=== PATIENT | male | born 1990 | race Caucasian/White ===

== ENCOUNTER 2017-12-31 11:55 | Emergency (ER) | payer SELFPAY ==
--- NOTE | 2017-12-31 12:23 | EKG ---
Test Date: 2017-12-31 Test Time: 12:11:16 Feed Manager: SHELLI MEASUREMENT RESULTS: Intervals: Rate: 78 OK: 136 QRSD: 82 QT: 364 QTc: 414 [place]: P: 66 OK: 136 QRS: -10 T: 19 INTERPRETIVE STATEMENTS: Normal sinus rhythm Normal ECG No previous ECG available for comparison Electronically Signed On 12-31-17 12:23:21 CDT by Lars Kendrick
[2017-12-31 12:33] LABS: Absolute Lymphocytes (CBC) 2.4 K/uL (0.7-4.9); Absolute Neutrophil 8.4 K/uL (1.8-8.0); Basophils % 0.9 % (0-1.3); Eosinophils % 0.6 % (0-4.4); Hematocrit 45.5 % (39.6-49.0); Lymphocytes % 20.3 % (15.3-44.8); MCH 32.5 pg (27.0-35.0); MCV 92.6 fL (80-100); MPV 9.6 fL (7.6-11.3); Monocytes % 8.7 % (3.3-12.3); RBC Red Blood Cell Count 4.92 M/uL (4.33-5.43)
[2017-12-31 12:35] LABS: Urine Blood NEGATIVE (NEG); Urine Glucose NEGATIVE (NEG); Urine Protein NEGATIVE (NEG); Urine pH 6.5 (5.0-7.0)
[2017-12-31 12:35] LABS: Protime INR 1.01
[2017-12-31 12:47] LABS: ALT/SGPT 48 U/L (12-78); AST/SGOT 23 U/L (15-37); Albumin 4.2 g/dL (3.4-5.0); Alkaline Phosphatase 85 U/L (45-117); BUN Blood Urea Nitrogen 8 mg/dL (7-18); Bicarbonate 28 mmol/L (21-32); Bilirubin Direct 0.2 mg/dL (0-0.2); Bilirubin Total 0.8 mg/dL (0.2-1.0); Glucose Level 62 mg/dL (74-106); Potassium 3.7 mmol/L (3.5-5.1); Protein, Total 7.9 g/dL (6.4-8.2); Sodium Level 142 mmol/L (136-145)
[2017-12-31 12:57] LABS: Barbiturates NEGATIVE (NEGATIVE); Benzodiazepines NEGATIVE (NEGATIVE); Cocaine NEGATIVE (NEGATIVE); METHAMPHETAM POSITIVE (NEGATIVE); Methadone NEGATIVE (NEGATIVE); Opiates NEGATIVE (NEGATIVE); Phencyclidine NEGATIVE (NEGATIVE); THC Cannibis POSITIVE (NEGATIVE)
[2017-12-31] MEDS ORDERED: NICOTINE 21 MG/PAT TD ONE (21:24)
--- NOTE | 2018-01-01 12:56 | EDPHYS ---
Physician Documentation [facility] Name: Chris Gurrola Age: 27 yrs Sex: Male : 1990 Arrival Date: 12/31/2017 Time: 12:00 Bed 17 Private MD: ED Physician Rj Jackson HPI: 12/31 15:57 This 27 yrs old Male presents to ER via EMS with complaints of Suicidal kb Ideation. 15:57 The patient presents to the emergency department with depression, suicide ideation, and kb the patient has a plan, to jump from a height. Onset: The symptoms/episode began/occurred last night. Past psychiatric history: Prior diagnosis: depression, Psychiatric medications include: Lexapro, Primary psychiatric physician: the patient does not have a primary psychiatric physician, the patient has had a prior suicide gesture, where the patient took pills/meds, the patient has a previous inpatient psychiatric history, 6 month(s) ago, at [place]. Associated signs and symptoms: Pertinent positives; depression, suicide ideation. Severity of symptoms: At their worst the symptoms were moderate in the emergency department the symptoms are unchanged. The patient has experienced similar episodes in the past. The patient has not recently seen a physician. Historical: - Allergies: 13:15 Azithromycin; ss - Home Meds: 13:15 None [Active]; ss - PMHx: 13:15 Depression; Anxiety; ss - PSHx: 13:15 None; ss - Immunization history:: Adult Immunizations unknown. - Social history:: Smoking status: Patient uses tobacco products, smokes two packs cigarettes per day. - Ebola Screening: : Patient denies exposure to infectious person Patient denies travel to an Ebola-affected area in the 21 days before illness onset. ROS: 15:56 Constitutional: Negative for fever, chills, and weight loss, Cardiovascular: Negative kb for chest pain, palpitations, and edema, Respiratory: Negative for shortness of breath, cough, wheezing, and pleuritic chest pain, Abdomen/GI: Negative for abdominal pain, nausea, vomiting, diarrhea, and constipation, Back: Negative for injury and pain, : Negative for injury, bleeding, discharge, and swelling, MS/Extremity: Negative for injury and deformity, Skin: Negative for injury, rash, and discoloration, Neuro: Negative for headache, weakness, numbness, tingling, and seizure. 15:56 Psych: Positive for depression, suicidal ideation. Exam: 15:56 Constitutional: This is a well developed, well nourished patient who is awake, alert, kb and in no acute distress. Head/Face: Normocephalic, atraumatic. Chest/axilla: Normal chest wall appearance and motion. Nontender with no deformity. No lesions are appreciated. Cardiovascular: Regular rate and rhythm with a normal S1 and S2. No gallops, murmurs, or rubs. Normal PMI, no JVD. No pulse deficits. Respiratory: Lungs have equal breath sounds bilaterally, clear to auscultation and percussion. No rales, rhonchi or wheezes noted. No increased work of breathing, no retractions or nasal flaring. Abdomen/GI: Soft, non-tender, with normal bowel sounds. No distension or tympany. No guarding or rebound. No evidence of tenderness throughout. Back: No spinal tenderness. No costovertebral tenderness. Full range of motion. Skin: Warm, dry with normal turgor. Normal color with no rashes, no lesions, and no evidence of cellulitis. MS/ Extremity: Pulses equal, no cyanosis. Neurovascular intact. Full, normal range of motion. Neuro: Awake and alert, GCS 15, oriented to person, place, time, and situation. Cranial nerves II-XII grossly intact. Motor strength 5/5 in all extremities. Sensory grossly intact. Cerebellar exam normal. Normal gait. 15:56 Psych: Behavior/mood is pleasant, cooperative, suicidal, Affect is calm, Oriented to person, place, time, Patient has no thoughts/intents to harm self or others. Judgement / Insight is normal. Memory is normal. Delusions/hallucinations are not present. Vital Signs: 12:00 BP 123 / 93; Pulse 84; Resp 18; Temp 98.2(O); Pulse Ox 99% on R/A; Pain 0/10; dj 13:21 Height 6 ft. 0 in. (182.88 cm); ss 16:18 BP 125 / 87; Pulse 76; Resp 18; Temp 98.7; Pulse Ox 100% on R/A; Pain 0/10; mg2 20:00 BP 110 / 90; Pulse 79; Resp 18 S; Temp 97.7(O); Pulse Ox 100% on R/A; Pain 0/10; mh6 22:20 Weight 82.19 kg (M); mt 01/01 00:00 BP 116 / 75; Pulse 67; Resp 18 S; Temp 98.7; Pulse Ox 97% on R/A; Pain 0/10; mh6 04:00 BP 112 / 78; Pulse 66; Resp 18 S; Temp 97.8(O); Pulse Ox 96% on R/A; Pain 0/10; mh6 08:00 BP 128 / 79; Pulse 80; Resp 16; Pulse Ox 99% on R/A; dh3 11:45 BP 111 / 72; Pulse 84; Resp 16; Pulse Ox 99% ; fa1 11:45 Pain 0/10; fa1 12/31 22:20 Body Mass Index 24.57 (82.19 kg, 182.88 cm) in MDM: 12/31 12:04 Patient medically screened. kb 15:56 Data reviewed: vital signs, nurses notes. Data interpreted: Pulse oximetry: on room air kb is 99 %. Interpretation: normal. 16:04 ED course: [facility] Screener at bedside for evaluation. kb 01/01 12:56 ED course: Had a long discussion with the patient and recapped how he came to be in the [facility] ED. His story seemed calm and collected and consistent with prior known history. Since his arrival some 24 hours ago, he has been calm and cooperative. He has not required any intervention or chemical management. He appears to understand what his triggers are (primarily his father) and how to avoid them (leave, go elsewhere, get back to [place], [place]). He admits to his substance abuse patterns and was otherwise reasonable and appropriate. He denies being a current threat to his safety or that of others. He does not deny that this could change in the future but voices understanding that should his circumstances deteriorate, he needs to remove himself from the environment to a calmer location. 12/31 12:04 Order name: Acetaminophen; Complete Time: 12:50 kb 12/31 12:04 Order name: Basic Metabolic Panel; Complete Time: 12:50 kb 12/31 12:04 Order name: CBC with Diff; Complete Time: 12:43 kb 12/31 12:04 Order name: ETOH Level; Complete Time: 12:50 kb 12/31 12:04 Order name: Hepatic Function; Complete Time: 12:50 kb 12/31 12:04 Order name: PT-INR; Complete Time: 12:43 kb 12/31 12:04 Order name: Ptt, Activated; Complete Time: 12:43 kb 12/31 12:04 Order name: Salicylate; Complete Time: 13:15 kb 12/31 12:04 Order name: Urine Drug Screen; Complete Time: 13:03 kb 12/31 12:04 Order name: EKG; Complete Time: 12:04 kb 12/31 12:24 Order name: Urine Dipstick--Ancillary (enter results); Complete Time: 12:36 bd 12/31 13:21 Order name: Diet Finger Food; Complete Time: 13:21 ss 12/31 17:20 Order name: Diet Finger Food; Complete Time: 17:21 mg2 12/31 12:04 Order name: EKG - Nurse/Tech; Complete Time: 12:20 kb 12/31 12:04 Order name: IV Saline Lock; Complete Time: 12:20 kb 12/31 12:04 Order name: Labs collected and sent; Complete Time: 12:20 kb 12/31 12:04 Order name: Urine Dipstick-Ancillary (obtain specimen); Complete Time: 12:20 kb 01/01 07:13 Order name: Diet Finger Food; Complete Time: 07:13 rb1 01/01 11:35 Order name: Diet Finger Food; Complete Time: 11:35 fa1 Administered Medications: 12/31 21:20 Drug: Nicoderm CQ 21 mg/24 hr 1 patches Route: Transdermal; Site: anterior chest wall; mg2 Disposition: 17:53 Co-signature as Attending Physician, Lincoln Rudd MD. Disposition: 01/01/18 12:55 Discharged to Home. Impression: Suicidal ideations, Adjustment disorder with depressed mood. - Condition is Stable. - Discharge Instructions: Suicidal Feelings: How to Help Yourself, Major Depressive Disorder, [id number]. - Medication Reconciliation Form, Thank You Letter form. - Follow up: Private Physician; When: 2 - 3 days; Reason: If symptoms return, Further diagnostic work-up, Recheck today's complaints, Continuance of care, Re-evaluation by your physician. - Problem is an acute exacerbation. - Symptoms are resolved. Signatures: Dispatcher [employer] Candace Lopez FNP-C FNP-Ckb Rittger, Rj, MD MD kdr Renita Wilkes RN RN ss Ambika Desai RN RN rb1 Lincoln Rudd MD MD gs Fredrick Julian RN RN mg2 Corrections: (The following items were deleted from the chart) 01/01 13:21 12:55 01/01/2018 12:55 Discharged to Home. Impression: Suicidal ideations; Adjustment rb1 disorder with depressed mood. Condition is Stable. Forms are Medication Reconciliation Form, Thank You Letter, Antibiotic Education, Prescription Opioid Use. Follow up: Private Physician; When: 2 - 3 days; Reason: If symptoms return, Further diagnostic work-up, Recheck today's complaints, Continuance of care, Re-evaluation by your physician. Problem is an acute exacerbation. Symptoms are resolved. kdr
--- NOTE | 2018-01-01 12:56 | ER ---
Nurse's Notes [facility] Name: Chris Gurrola Age: 27 yrs Sex: Male : 1990 Arrival Date: 12/31/2017 Time: 12:00 Bed 17 Private MD: Diagnosis: Suicidal ideations;Adjustment disorder with depressed mood Presentation: 12/31 13:11 Presenting complaint: EMS states: Pt got into an argument with his father and began ss having suicidal thoughts. Pt's plan was to run out into traffic. Has a history of suicidal attempts/ ideations. Denies HI. Transition of care: patient was not received from another setting of care. Onset of symptoms is unknown. Risk Assessment: Do you want to hurt yourself or someone else? Patient reports desire/thoughts of hurting themselves or someone else. Provider notified. Initial Sepsis Screen: Does the patient meet any 2 criteria? No. Patient's initial sepsis screen is negative. Does the patient have a suspected source of infection? No. Patient's initial sepsis screen is negative. Care prior to arrival: None. 13:11 Method Of Arrival: EMS: [facility] ss 13:11 Acuity: TAMMIE 2 ss Historical: - Allergies: 13:15 Azithromycin; ss - Home Meds: 13:15 None [Active]; ss - PMHx: 13:15 Depression; Anxiety; ss - PSHx: 13:15 None; ss - Immunization history:: Adult Immunizations unknown. - Social history:: Smoking status: Patient uses tobacco products, smokes two packs cigarettes per day. - Ebola Screening: : Patient denies exposure to infectious person Patient denies travel to an Ebola-affected area in the 21 days before illness onset. Screenin:16 Abuse screen: Denies threats or abuse. Denies injuries from another. Nutritional ss screening: No deficits noted. Tuberculosis screening: Never had TB. Fall Risk None identified. Assessment: 12:00 General: Appears in no apparent distress. Behavior is calm, cooperative, tearful. Pain: ss Denies pain. Neuro: Level of Consciousness is awake, alert, obeys commands, Oriented to person, place, time, situation. Cardiovascular: Capillary refill < 3 seconds is brisk in bilateral fingers. Respiratory: Airway is patent Respiratory effort is even, unlabored, Respiratory pattern is regular, symmetrical, Denies cough, shortness of breath labored breathing, pain with respiration, pain with cough, pain with movement. GI: Patient currently denies abdominal pain, diarrhea, nausea, vomiting. : No signs and/or symptoms were reported regarding the genitourinary system. EENT: Oral mucosa is moist. Throat is clear. Derm: Skin is pink, warm \\T\\ dry. normal. Musculoskeletal: No signs and/or symptoms reported regarding the musculoskeletal system. 13:18 Reassessment: Pt determined medically cleared by SHENG Maria. Awaiting for [facility] ER evaluation. 16:02 Reassessment: Patient appears in no apparent distress at this time. Patient and/or mg2 family updated on plan of care and expected duration. Pain level reassessed. Patient is alert, oriented x 3, equal unlabored respirations, skin warm/dry/pink. [place] at bedside talking to the patient. 17:00 Reassessment: Patient appears in no apparent distress at this time. Patient and/or mg2 family updated on plan of care and expected duration. Pain level reassessed. Patient is alert, oriented x 3, equal unlabored respirations, skin warm/dry/pink. sitter at bedside. 18:00 Reassessment: Patient appears in no apparent distress at this time. Patient and/or mg2 family updated on plan of care and expected duration. Pain level reassessed. Patient is alert, oriented x 3, equal unlabored respirations, skin warm/dry/pink. 19:00 Reassessment: Patient appears in no apparent distress at this time. Patient and/or mg2 family updated on plan of care and expected duration. Pain level reassessed. Patient is alert, oriented x 3, equal unlabored respirations, skin warm/dry/pink. 20:01 Reassessment: Patient appears in no apparent distress at this time. Patient and/or mg2 family updated on plan of care and expected duration. Pain level reassessed. Patient is alert, oriented x 3, equal unlabored respirations, skin warm/dry/pink. 21:05 Reassessment: Patient appears in no apparent distress at this time. Patient and/or mg2 family updated on plan of care and expected duration. Pain level reassessed. Patient is alert, oriented x 3, equal unlabored respirations, skin warm/dry/pink. sitter at bedside. 22:10 Reassessment: Patient appears in no apparent distress at this time. patient sleeping on mg2 bed. 23:00 Reassessment: Patient appears in no apparent distress at this time. Patient and/or mg2 family updated on plan of care and expected duration. Pain level reassessed. Patient is alert, oriented x 3, equal unlabored respirations, skin warm/dry/pink. 01/01 00:10 Reassessment: No changes from previously documented assessment. patient sleeping. mg2 01:30 Reassessment: Patient appears in no apparent distress at this time. mg2 02:30 Reassessment: Patient appears in no apparent distress at this time. Patient and/or jd3 family updated on plan of care and expected duration. Pain level reassessed. Patient is alert, oriented x 3, equal unlabored respirations, skin warm/dry/pink. report received from Gisela HWANG. pt resting in bed with even and unlabored respirations, no signs of distress noted. sitter at bedside. 03:00 Reassessment: Patient appears in no apparent distress at this time. No changes from jd3 previously documented assessment. Patient and/or family updated on plan of care and expected duration. Pain level reassessed. Patient is alert, oriented x 3, equal unlabored respirations, skin warm/dry/pink. 04:00 Reassessment: Patient appears in no apparent distress at this time. No changes from jd3 previously documented assessment. Patient and/or family updated on plan of care and expected duration. Pain level reassessed. Patient is alert, oriented x 3, equal unlabored respirations, skin warm/dry/pink. 05:00 Reassessment: Patient appears in no apparent distress at this time. No changes from jd3 previously documented assessment. Patient and/or family updated on plan of care and expected duration. Pain level reassessed. Patient is alert, oriented x 3, equal unlabored respirations, skin warm/dry/pink. 06:00 Reassessment: Patient appears in no apparent distress at this time. No changes from jd3 previously documented assessment. Patient and/or family updated on plan of care and expected duration. Pain level reassessed. Patient is alert, oriented x 3, equal unlabored respirations, skin warm/dry/pink. 07:00 General: Appears in no apparent distress. comfortable, Behavior is calm, cooperative. rb1 Pain: Denies pain. Neuro: Level of Consciousness is awake, alert, obeys commands, Oriented to person, place, time, situation. Cardiovascular: Capillary refill < 3 seconds is brisk in bilateral fingers. Respiratory: Airway is patent Respiratory effort is even, unlabored, Respiratory pattern is regular, symmetrical. Derm: Skin is pink, warm \\T\\ dry. 08:00 Reassessment: Patient appears in no apparent distress at this time. No changes from rb1 previously documented assessment. 08:40 Reassessment: Pt. refused his breakfast tray. rb1 09:00 Reassessment: Patient appears in no apparent distress at this time. Patient and/or rb1 family updated on plan of care and expected duration. Pain level reassessed. Patient is alert, oriented x 3, equal unlabored respirations, skin warm/dry/pink. Patient denies pain at this time. 10:00 Reassessment: Patient appears in no apparent distress at this time. Pt. is resting with rb1 eyes closed, respirations even, unlabored. Bed in low, locked position. Sitter at bedside. 11:00 Reassessment: Patient and/or family updated on plan of care and expected duration. Pain rb1 level reassessed. Patient is alert, oriented x 3, equal unlabored respirations, skin warm/dry/pink. 11:40 Reassessment: Patient appears in no apparent distress at this time. Pt. requested to rb1 speak with the doctor. Dr. Jackson was notified. 11:45 Reassessment: Pt. has been calm and cooperative. Has not given the staff any issues or rb1 been belligerent at any time. Pt. is aware of his situation and the consequences of his actions. 12:10 Reassessment: Provider is at bedside talking with the pt. rb1 13:09 Reassessment: Patient appears in no apparent distress at this time. Patient and/or rb1 family updated on plan of care and expected duration. Pain level reassessed. Patient is alert, oriented x 3, equal unlabored respirations, skin warm/dry/pink. Pt. was advised to come back if he had any desire to harm himself or others. Pt. stated, "I will but I don't want to hurt myself or anyone else. I just want to get back home to [place]." Pt. was given print out of [employer] resources to call for assistance. 13:15 Reassessment: Pt. was given a bus pass for transportation home. rb1 Psych: 02:30 Subjective: Patient's mood is sad, Delusions are denied, Hallucinations are denied jd3 Having thoughts of suicide. Objective: Patient is cooperative, Speech is normal, Affect is appropriate. Interventions: Removed personal items and placed in bag. Patient placed in hospital gown. Searched person for dangerous items. Urine collected and sent for urine drug test. Belonging list filled out. Patient reassessed during use of restraints. Patient is physically safe. Suicide Risk Assessment: Sad Person Scale: Sex of patient: Male: Score 1 point. Age of patient: Score 1 point if patient 15-34. Depression: Score 1 point if signs of depression are present. Previous Attempt: Score 0 point if patient has not previously attempted suicide. Substance Abuse: Score 1 point if patient abuses alcohol or drugs. Rational Thinking: Score 0 point if patient has rational thinking. Social Support: Score 0 if social support is present/available. Organized Plan: Score 1 point if patient had a plan in place. Relationship: Score 1 point if patient is , , , or for a single male Chronic Sickness: Score 0 point if patient does not have a chronic illness, debilitating, or severe disorder. TOTAL POINTS: If total points are 5-6, proposed clinical action is to strongly consider hospitalization, depending upon confidence in the follow-up arrangement. Implement suicide precautions. Safety Checks: Personal items have been removed. Door is open. No visitors are present at this time. Patient uses marijuana. Vital Signs: 12/31 12:00 BP 123 / 93; Pulse 84; Resp 18; Temp 98.2(O); Pulse Ox 99% on R/A; Pain 0/10; dj 13:21 Height 6 ft. 0 in. (182.88 cm); ss 16:18 BP 125 / 87; Pulse 76; Resp 18; Temp 98.7; Pulse Ox 100% on R/A; Pain 0/10; mg2 20:00 BP 110 / 90; Pulse 79; Resp 18 S; Temp 97.7(O); Pulse Ox 100% on R/A; Pain 0/10; mh6 22:20 Weight 82.19 kg (M); mt 01/01 00:00 BP 116 / 75; Pulse 67; Resp 18 S; Temp 98.7; Pulse Ox 97% on R/A; Pain 0/10; mh6 04:00 BP 112 / 78; Pulse 66; Resp 18 S; Temp 97.8(O); Pulse Ox 96% on R/A; Pain 0/10; mh6 08:00 BP 128 / 79; Pulse 80; Resp 16; Pulse Ox 99% on R/A; dh3 11:45 BP 111 / 72; Pulse 84; Resp 16; Pulse Ox 99% ; fa1 11:45 Pain 0/10; fa1 10/10 22:20 Body Mass Index 24.57 (82.19 kg, 182.88 cm) [place] ED Course: 12/31 12:00 Patient arrived in ED. ss 12:00 Patient has correct armband on for positive identification. Bed in low position. items ss removed from room, sitter present. 12:03 Cand[facility] Lloyd [facility]C [facility] kb 12:03 Lincoln Rudd MD is Attending Physician. kb 12:08 Safety checks: Items removed: yes. Door open/sign placed on door: yes. Family/friend ms present: no. Sitter present: Yes. 12:14 EKG done, by cooking appliance repair technician. reviewed by Candace GOMEZ. at1 12:15 Safety checks: Items removed: yes. Door open/sign placed on door: yes. Family/friend ms present: no. Sitter present: Yes. 12:24 Initial lab(s) drawn, by me, sent to lab. Urine collected: clean catch specimen, clear. ms Inserted saline lock: 20 gauge in right antecubital area, using aseptic technique. Blood collected. 12:30 Safety Checks: Personal items have been removed. The door is open or patient has been dj placed in a hallway bed/chair. There are no family/friend visitors at this time Sitter present at this time. 12:45 Safety Checks: Personal items have been removed. The door is open or patient has been dj placed in a hallway bed/chair. There are no family/friend visitors at this time Sitter present at this time. Other: Patient is watching TV. 13:00 Safety Checks: Personal items have been removed. The door is open or patient has been dj placed in a hallway bed/chair. There are no family/friend visitors at this time Sitter present at this time. 13:13 Triage completed. ss 13:15 Safety Checks: Personal items have been removed. The door is open or patient has been dj placed in a hallway bed/chair. There are no family/friend visitors at this time Sitter present at this time. 13:15 Arm band placed on right wrist. ss 13:19 Renita Wilkes, JAIDEN is Primary Nurse. ss 13:30 Safety Checks: Personal items have been removed. The door is open or patient has been dj placed in a hallway bed/chair. There are no family/friend visitors at this time Sitter present at this time. 13:45 Safety Checks: Personal items have been removed. The door is open or patient has been dj placed in a hallway bed/chair. There are no family/friend visitors at this time Sitter present at this time. 14:00 Safety Checks: Personal items have been removed. The door is open or patient has been dj placed in a hallway bed/chair. There are no family/friend visitors at this time Sitter present at this time. Other: Patient is eating lunch now. 14:15 Safety Checks: Personal items have been removed. The door is open or patient has been dj placed in a hallway bed/chair. There are no family/friend visitors at this time Sitter present at this time. 14:30 Safety Checks: Personal items have been removed. The door is open or patient has been dj placed in a hallway bed/chair. There are no family/friend visitors at this time Sitter present at this time. 14:45 Safety Checks: Personal items have been removed. The door is open or patient has been dj placed in a hallway bed/chair. There are no family/friend visitors at this time Sitter present at this time. 15:00 Safety Checks: Personal items have been removed. The door is open or patient has been dj placed in a hallway bed/chair. There are no family/friend visitors at this time Sitter present at this time. 15:15 Safety Checks: Personal items have been removed. The door is open or patient has been dj placed in a hallway bed/chair. There are no family/friend visitors at this time Sitter present at this time. 15:30 Safety Checks: Personal items have been removed. The door is open or patient has been dj placed in a hallway bed/chair. There are no family/friend visitors at this time Sitter present at this time. 15:45 Safety Checks: Personal items have been removed. The door is open or patient has been dj placed in a hallway bed/chair. A family member and/or friend is present and encouraged to stay. Sitter present at this time. 16:00 Safety Checks: Personal items have been removed. The door is open or patient has been dj placed in a hallway bed/chair. A family member and/or friend is present and encouraged to stay. Sitter present at this time. Sitter not present at this time. 16:15 Safety Checks: Personal items have been removed. The door is open or patient has been dj placed in a hallway bed/chair. There are no family/friend visitors at this time Sitter present at this time. 16:30 Safety Checks: Personal items have been removed. The door is open or patient has been dj placed in a hallway bed/chair. There are no family/friend visitors at this time Sitter present at this time. 16:45 Safety Checks: Personal items have been removed. The door is open or patient has been dj placed in a hallway bed/chair. There are no family/friend visitors at this time Sitter present at this time. 17:00 Safety Checks: Personal items have been removed. The door is open or patient has been dj placed in a hallway bed/chair. There are no family/friend visitors at this time Sitter present at this time. 17:15 Safety Checks: Personal items have been removed. The door is open or patient has been dj placed in a hallway bed/chair. There are no family/friend visitors at this time Sitter present at this time. 17:30 Safety Checks: Personal items have been removed. The door is open or patient has been dj placed in a hallway bed/chair. There are no family/friend visitors at this time Sitter present at this time. 17:45 Safety Checks: Personal items have been removed. The door is open or patient has been dj placed in a hallway bed/chair. There are no family/friend visitors at this time Sitter present at this time. 18:00 Safety Checks: Personal items have been removed. The door is open or patient has been dj placed in a hallway bed/chair. There are no family/friend visitors at this time Sitter present at this time. 18:15 Safety Checks: Personal items have been removed. The door is open or patient has been dj placed in a hallway bed/chair. There are no family/friend visitors at this time Sitter present at this time. 18:30 Safety Checks: Personal items have been removed. The door is open or patient has been dj placed in a hallway bed/chair. There are no family/friend visitors at this time Sitter present at this time. 18:45 Safety Checks: Personal items have been removed. The door is open or patient has been dj placed in a hallway bed/chair. There are no family/friend visitors at this time Sitter present at this time. 19:00 Safety Checks: Personal items have been removed. The door is open or patient has been dj placed in a hallway bed/chair. There are no family/friend visitors at this time Sitter present at this time. 19:14 Safety Checks: Personal items have been removed. The door is open or patient has been mg2 placed in a hallway bed/chair. 19:15 No apparent distress. Appears to be sleeping. Safety Checks: Personal items have been mh6 removed. The door is open or patient has been placed in a hallway bed/chair. There are no family/friend visitors at this time Sitter present at this time. 19:30 Safety Checks: Personal items have been removed. The door is open or patient has been mh6 placed in a hallway bed/chair. There are no family/friend visitors at this time Sitter present at this time. 19:45 Safety Checks: Personal items have been removed. The door is open or patient has been mh6 placed in a hallway bed/chair. There are no family/friend visitors at this time Sitter present at this time. 20:00 No apparent distress. Patient requests food. Patient requests rest room assistance. mh6 Safety Checks: Personal items have been removed. The door is open or patient has been placed in a hallway bed/chair. There are no family/friend visitors at this time Sitter present at this time. 20:15 No apparent distress. Safety Checks: Personal items have been removed. The door is open mh6 or patient has been placed in a hallway bed/chair. There are no family/friend visitors at this time Sitter present at this time. 20:30 Safety Checks: Personal items have been removed. The door is open or patient has been mh6 placed in a hallway bed/chair. There are no family/friend visitors at this time Sitter present at this time. 20:45 Safety Checks: Personal items have been removed. The door is open or patient has been mh6 placed in a hallway bed/chair. There are no family/friend visitors at this time Sitter present at this time. 21:00 Safety Checks: Personal items have been removed. The door is open or patient has been mh6 placed in a hallway bed/chair. There are no family/friend visitors at this time Sitter present at this time. 21:15 Safety Checks: Personal items have been removed. The door is open or patient has been mh6 placed in a hallway bed/chair. There are no family/friend visitors at this time Sitter present at this time. 21:30 Safety Checks: Personal items have been removed. The door is open or patient has been mh6 placed in a hallway bed/chair. There are no family/friend visitors at this time Sitter present at this time. 21:45 Safety Checks: Personal items have been removed. The door is open or patient has been mh6 placed in a hallway bed/chair. There are no family/friend visitors at this time Sitter present at this time. 22:00 Safety Checks: Personal items have been removed. The door is open or patient has been mh6 placed in a hallway bed/chair. There are no family/friend visitors at this time Sitter present at this time. 22:15 Safety Checks: Personal items have been removed. The door is open or patient has been mh6 placed in a hallway bed/chair. There are no family/friend visitors at this time Sitter present at this time. 22:30 Safety Checks: Personal items have been removed. The door is open or patient has been mh6 placed in a hallway bed/chair. There are no family/friend visitors at this time Sitter present at this time. 22:45 Safety Checks: Personal items have been removed. The door is open or patient has been mh6 placed in a hallway bed/chair. There are no family/friend visitors at this time Sitter present at this time. 23:00 Safety Checks: Personal items have been removed. The door is open or patient has been mh6 placed in a hallway bed/chair. There are no family/friend visitors at this time Sitter present at this time. 23:15 Safety Checks: Personal items have been removed. The door is open or patient has been mh6 placed in a hallway bed/chair. There are no family/friend visitors at this time Sitter present at this time. 23:30 Safety Checks: Personal items have been removed. The door is open or patient has been mh6 placed in a hallway bed/chair. There are no family/friend visitors at this time Sitter present at this time. 23:45 Safety Checks: Personal items have been removed. The door is open or patient has been mh6 placed in a hallway bed/chair. There are no family/friend visitors at this time Sitter present at this time. 01/01 00:00 Safety Checks: Personal items have been removed. The door is open or patient has been mh6 placed in a hallway bed/chair. There are no family/friend visitors at this time Sitter present at this time. 00:15 Safety Checks: Personal items have been removed. The door is open or patient has been mh6 placed in a hallway bed/chair. There are no family/friend visitors at this time Sitter present at this time. 00:30 Safety Checks: Personal items have been removed. The door is open or patient has been mh6 placed in a hallway bed/chair. There are no family/friend visitors at this time Sitter present at this time. 00:45 Safety Checks: Personal items have been removed. The door is open or patient has been mh6 placed in a hallway bed/chair. There are no family/friend visitors at this time Sitter present at this time. 01:00 Safety Checks: Personal items have been removed. The door is open or patient has been mh6 placed in a hallway bed/chair. There are no family/friend visitors at this time Sitter present at this time. 01:15 Safety Checks: Personal items have been removed. The door is open or patient has been mh6 placed in a hallway bed/chair. There are no family/friend visitors at this time Sitter present at this time. 01:30 Safety Checks: Personal items have been removed. The door is open or patient has been mh6 placed in a hallway bed/chair. There are no family/friend visitors at this time Sitter present at this time. 01:45 Safety Checks: Personal items have been removed. The door is open or patient has been mh6 placed in a hallway bed/chair. There are no family/friend visitors at this time Sitter present at this time. 02:00 Safety Checks: Personal items have been removed. The door is open or patient has been mh6 placed in a hallway bed/chair. There are no family/friend visitors at this time Sitter present at this time. 02:15 Safety Checks: Personal items have been removed. The door is open or patient has been mh6 placed in a hallway bed/chair. There are no family/friend visitors at this time Sitter present at this time. 02:30 Safety Checks: Personal items have been removed. The door is open or patient has been mh6 placed in a hallway bed/chair. There are no family/friend visitors at this time Sitter present at this time. 02:34 Primary Nurse role handed off by Renita Wilkes RN jd3 02:34 Marky Ibarra RN is Primary Nurse. jd3 02:45 Safety Checks: Personal items have been removed. The door is open or patient has been mh6 placed in a hallway bed/chair. There are no family/friend visitors at this time Sitter present at this time. 03:00 Safety Checks: Personal items have been removed. The door is open or patient has been mh6 placed in a hallway bed/chair. There are no family/friend visitors at this time Sitter present at this time. 03:15 Safety Checks: Personal items have been removed. The door is open or patient has been mh6 placed in a hallway bed/chair. There are no family/friend visitors at this time Sitter present at this time. 03:30 Safety Checks: Personal items have been removed. The door is open or patient has been mh6 placed in a hallway bed/chair. There are no family/friend visitors at this time Sitter present at this time. 03:45 Safety Checks: Personal items have been removed. The door is open or patient has been mh6 placed in a hallway bed/chair. There are no family/friend visitors at this time Sitter present at this time. 04:00 Safety Checks: Personal items have been removed. The door is open or patient has been mh6 placed in a hallway bed/chair. There are no family/friend visitors at this time Sitter present at this time. 04:15 Safety Checks: Personal items have been removed. The door is open or patient has been mh6 placed in a hallway bed/chair. There are no family/friend visitors at this time Sitter present at this time. 04:30 Safety Checks: Personal items have been removed. The door is open or patient has been mh6 placed in a hallway bed/chair. There are no family/friend visitors at this time Sitter present at this time. 04:45 Safety Checks: Personal items have been removed. The door is open or patient has been mh6 placed in a hallway bed/chair. There are no family/friend visitors at this time Sitter present at this time. 05:00 Safety Checks: Personal items have been removed. The door is open or patient has been mh6 placed in a hallway bed/chair. There are no family/friend visitors at this time Sitter present at this time. 05:15 Safety Checks: Personal items have been removed. The door is open or patient has been mh6 placed in a hallway bed/chair. There are no family/friend visitors at this time Sitter present at this time. 05:30 Safety Checks: Personal items have been removed. The door is open or patient has been mh6 placed in a hallway bed/chair. There are no family/friend visitors at this time Sitter present at this time. 05:45 Safety Checks: Personal items have been removed. The door is open or patient has been mh6 placed in a hallway bed/chair. There are no family/friend visitors at this time Sitter present at this time. 06:00 Safety Checks: Personal items have been removed. The door is open or patient has been mh6 placed in a hallway bed/chair. There are no family/friend visitors at this time Sitter present at this time. 06:15 Safety Checks: Personal items have been removed. The door is open or patient has been mh6 placed in a hallway bed/chair. There are no family/friend visitors at this time Sitter present at this time. 06:30 Safety Checks: Personal items have been removed. The door is open or patient has been mh6 placed in a hallway bed/chair. There are no family/friend visitors at this time Sitter present at this time. 06:45 Safety Checks: Personal items have been removed. The door is open or patient has been mh6 placed in a hallway bed/chair. There are no family/friend visitors at this time Sitter present at this time. 07:00 Safety Checks: Personal items have been removed. The door is open or patient has been mh6 placed in a hallway bed/chair. There are no family/friend visitors at this time Sitter present at this time. 07:15 Safety Checks: Personal items have been removed. The door is open or patient has been rb1 placed in a hallway bed/chair. There are no family/friend visitors at this time Sitter present at this time. 07:30 Safety checks: Items removed: yes. Door open/sign placed on door: yes. Family/friend dh3 present: no. Sitter present: Yes. 07:44 Attending Physician role handed off by Lincoln Rudd MD kdr 07:44 Rj Jackson MD is Attending Physician. kdr 07:45 Safety checks: Items removed: yes. Door open/sign placed on door: yes. Family/friend dh3 present: no. Sitter present: Yes. 08:00 Safety checks: Items removed: yes. Door open/sign placed on door: yes. Family/friend dh3 present: no. Sitter present: Yes. 08:15 initiated a transfer with [facility] and the [facility]. Per [facility] they are eb at capacity and are unable to take the transfer at this time. 08:25 faxed patient records to the following facilities in attempt to transfer patient ; eb [facility], [facility], [facility], [facility], [facility], [facility], [facility], [facility], [facility], [facility], [facility], and [facility]. 08:30 Safety checks: Items removed: yes. Door open/sign placed on door: yes. Family/friend dh3 present: no. Sitter present: Yes. 08:45 Safety checks: Items removed: yes. Door open/sign placed on door: yes. Family/friend dh3 present: no. Sitter present: Yes. 09:00 Safety Checks: Personal items have been removed. The door is open or patient has been fa1 placed in a hallway bed/chair. There are no family/friend visitors at this time Sitter present at this time. 09:15 Safety Checks: Personal items have been removed. The door is open or patient has been fa1 placed in a hallway bed/chair. There are no family/friend visitors at this time Sitter present at this time. 09:30 Safety Checks: Personal items have been removed. The door is open or patient has been fa1 placed in a hallway bed/chair. There are no family/friend visitors at this time Sitter present at this time. 09:45 Safety Checks: Personal items have been removed. The door is open or patient has been fa1 placed in a hallway bed/chair. There are no family/friend visitors at this time Sitter present at this time. 10:00 Safety Checks: Personal items have been removed. The door is open or patient has been fa1 placed in a hallway bed/chair. There are no family/friend visitors at this time Sitter present at this time. 10:15 Safety Checks: Personal items have been removed. The door is open or patient has been fa1 placed in a hallway bed/chair. There are no family/friend visitors at this time Sitter present at this time. 10:30 Safety Checks: Personal items have been removed. The door is open or patient has been fa1 placed in a hallway bed/chair. There are no family/friend visitors at this time Sitter present at this time. 10:45 Safety Checks: Personal items have been removed. The door is open or patient has been fa1 placed in a hallway bed/chair. There are no family/friend visitors at this time Sitter present at this time. 11:00 Safety Checks: Personal items have been removed. The door is open or patient has been fa1 placed in a hallway bed/chair. There are no family/friend visitors at this time. 11:00 Safety Checks: Sitter present at this time. fa1 11:15 Safety Checks: Personal items have been removed. The door is open or patient has been fa1 placed in a hallway bed/chair. There are no family/friend visitors at this time Sitter present at this time. 11:30 Safety Checks: Personal items have been removed. The door is open or patient has been fa1 placed in a hallway bed/chair. There are no family/friend visitors at this time Sitter present at this time. 11:45 Safety Checks: Personal items have been removed. The door is open or patient has been fa1 placed in a hallway bed/chair. There are no family/friend visitors at this time Sitter present at this time. 12:00 Safety Checks: Personal items have been removed. The door is open or patient has been fa1 placed in a hallway bed/chair. There are no family/friend visitors at this time Sitter present at this time. 12:15 Safety Checks: Personal items have been removed. The door is open or patient has been fa1 placed in a hallway bed/chair. There are no family/friend visitors at this time Sitter present at this time. 12:30 Safety Checks: Personal items have been removed. The door is open or patient has been fa1 placed in a hallway bed/chair. There are no family/friend visitors at this time Sitter present at this time. 12:45 Safety Checks: Personal items have been removed. The door is open or patient has been rb1 placed in a hallway bed/chair. There are no family/friend visitors at this time Sitter present at this time. 12:49 Safety Checks: Personal items have been removed. The door is open or patient has been fa1 placed in a hallway bed/chair. There are no family/friend visitors at this time Sitter present at this time. 13:00 Safety Checks: Personal items have been removed. The door is open or patient has been fa1 placed in a hallway bed/chair. There are no family/friend visitors at this time Sitter present at this time. 13:15 Safety Checks: Personal items have been removed. The door is open or patient has been rb1 placed in a hallway bed/chair. There are no family/friend visitors at this time Sitter present at this time. 13:21 No provider procedures requiring assistance completed. IV discontinued, intact, rb1 bleeding controlled, No redness/swelling at site. Pressure dressing applied. Administered Medications: 12/31 21:20 Drug: Nicoderm CQ 21 mg/24 hr 1 patches Route: Transdermal; Site: anterior chest wall; mg2 Outcome: 01/01 12:55 Discharge ordered by . kdr 13:21 Patient left the ED. rb1 13:21 Discharged to home ambulatory. rb1 13:21 Condition: stable 13:21 Discharge instructions given to patient, Instructed on discharge instructions, follow up and referral plans. Demonstrated understanding of instructions, follow-up care, Prescriptions given X none Signatures: Candace Lloyd, LEAD QUALITY CONTROL TECHNICIAN-C LEAD QUALITY CONTROL TECHNICIAN-CkRj Avila MD MD kdr Solis, Maria ms Smirch, Shelby, RN RN ss Priti Cardozo, finding fastener EKG Tat1 Ambika Desai RN RN rb1 Cesar Roman RN RN fa1 Linda Brooks mt, Jesi [facility] Marky Ibarra RN RN [email or web address] Chloé Luis Michele RN RN [facility] [place] Laya Jaimes [facility] Janis Guardado [employer]rections: (The following items were deleted from the chart) 02:41 02:30 Reassessment: Patient appears in no apparent distress at this time. Patient jd3 and/or family updated on plan of care and expected duration. Pain level reassessed. Patient is alert, oriented x 3, equal unlabored respirations, skin warm/dry/pink. report received from Gisela HWANG jd3
== END 2018-01-01 13:21 | disposition home or self-care (01) ==
LOC: ER 11:55
DX: F43.21 Adjustment disorder with depressed mood (principal); F17.210 Nicotine dependence, cigarettes, uncomplicated; Z88.3 Allergy status to other anti-infective agents
CPT/HCPCS: 36415; 80048; 80076; 80307; 80320; 80329; 81003; 85025; 85610; 85730; 93005; 99285